=== PATIENT | female | born 1960 | race American Indian/Alaskan Native ===

== ENCOUNTER 2018-12-06 15:24 | Emergency (ER) | payer OTHER ==
[2018-12-06 15:38] VITALS: BP 137/81
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
[2018-12-06] MEDS ORDERED: HYDROcodone/ACETAMINOPHEN 5-325 MG TAB PO ONE (17:03)
[2018-12-06] MEDS ORDERED: IBUPROFEN 800 MG TAB PO ONE (17:03)
== END 2018-12-06 17:21 | disposition home or self-care (01) ==
LOC: ED 15:24
DX: M54.2 Cervicalgia (principal); M54.9 Dorsalgia, unspecified; I10 Essential (primary) hypertension; E11.9 Type 2 diabetes mellitus without complications
CPT/HCPCS: 72040

== ENCOUNTER 2019-02-26 05:25 | Emergency (ER) | payer SELFPAY ==
[2019-02-26] MEDS ORDERED: ONDANSETRON 4 MG ODT TAB PO PRN (07:09)
[2019-02-26] MEDS ORDERED: IBUPROFEN 600 MG TAB PO ONE (07:10)
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
[2019-02-26 10:08] LABS: Hematocrit 41.4 % (30.3-42.9); Hemoglobin 14.1 gm/dl (10.1-14.3); Mean Corpuscular HGB Conc 34 % (30-34); Mean Corpuscular Volume 86 fl (79-97); Platelet Count 273 K/mm3 (140-440); Red Blood Count 4.83 M/mm3 (3.65-5.03); Red Cell Distribution Width 13.5 % (13.2-15.2)
--- NOTE | 2019-02-26 10:55 | Cat Scan Report ---
CT cervical spine w con INDICATION: MAIN: posterior neck pain s/p TERA PAIN AND TINGLING DOWN LEFT ARM AND NECK. TECHNIQUE: All CT scans at this location are performed using the following dose modulation technique: Automated exposure control. COMPARISON: None available. FINDINGS: No acute fracture or subluxation is seen. ACDF at C3, C4, C5 has a satisfactory postoperative appeara nce. There is moderate to advanced discogenic degenerative change at C5-6 and C6-7. There is moderate osseous neural foraminal narrowing on the left at C4-5 and C5-6. There is no prevertebral soft tissue swelling. Lung apices are clear. Paraspinous musculature is unre markable. No soft tissue fluid collections are seen. IMPRESSION: 1. No acute abnormality. 2. Spondylitic changes with osseous neural foraminal narrowing on the left at C4-5 and C5-6. Signer Name: Pedro Pablo Baker MD Signed: 02/26/2019 10:51 AM Workstation Name: [id number]
[2019-02-26 11:27] LABS: Erythrocyte Sedimentation Rate 24 mm/Hr (0-20)
[2019-02-26 11:55] LABS: Total Cells Counted 100
[2019-02-26 11:56] LABS: Band Neutrophils # (Manual) 0.3 K/mm3; Basophils % (Manual) 0 % (0.0-1.8); RBC Morphology Normal
[2019-02-26 11:57] LABS: Platelet Estimate Consistent w Auto
[2019-02-26 12:12] VITALS: BP 141/74
== END 2019-02-26 12:12 | disposition home or self-care (01) ==
LOC: ED 05:25
DX: M54.2 Cervicalgia (principal); D72.828 Other elevated white blood cell count; I10 Essential (primary) hypertension; E11.9 Type 2 diabetes mellitus without complications; F17.200 Nicotine dependence, unspecified, uncomplicated; Z98.890 Other specified postprocedural states; Z79.899 Other long term (current) drug therapy; Z79.4 Long term (current) use of insulin
CPT/HCPCS: 36415; 72125; 72126; 85007; 85025; 85652

== ENCOUNTER 2020-05-15 05:58 | Emergency (ER) | payer OTHER ==
[2020-05-15] MEDS ORDERED: oxyCODONE /ACETAMINOPHEN 5-325MG TAB PO ONE (07:34)
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
--- NOTE | 2020-05-15 08:27 | Cat Scan Report ---
CLINICAL DATA: [See Reason for Exam] MAIN TECHNICAL DATA: CT imaging of the cervical spine was performed in the axial, sagittal, and coronal projections and alem ne algorithm in axial projection in the soft tissue algorithm. All CT scans at this location are performed using CT dose reduction for ALARA by means of automated e xposure control. C1-C2: The ring of C1 is normal. The odontoid is normal. There is no evidence of an offset. There is no evidence of a fracture. The spinal canal is well maintained. C2-C3: The spinal canal is well maintained. The neural foramina are normal. The vertebral bodies a re normal. The posterior elements are intact. There is no evidence of a fracture. C3-C4: . ACDF at C3- C4 satisfactory postoperative changes. C4-C5: ACDF C4-C5 has a satisfactory postoperative appearance. C5-C6: Interval surgical changes present C5-C6. C6-C7: Interval surgical changes present C6-C7 C7-T1: The spinal canal is well maintained. The neural foramina are normal. The vertebral bodies a re normal. The posterior elements are intact. There is no evidence of a fracture. IMPRESSION: Postoperative changes as noted If clinical symptoms persist recommend MR for further evaluation Signer Name: Andrade Rojas MD Signed: 05/15/2020 8:22 AM Workstation Name: [id number]
[2020-05-15 09:18] LABS: BUN/Creatinine Ratio 26; Blood Urea Nitrogen 21 mg/dL (7-17); Calcium 10.2 mg/dL (8.4-10.2); Hemolysis Index 25
[2020-05-15 09:19] LABS: Hematocrit 42.9 % (30.3-42.9); Hemoglobin 14.9 gm/dl (10.1-14.3); Mean Corpuscular HGB Conc 35 % (30-34); Mean Corpuscular Volume 86 fl (79-97); Platelet Count 192 K/mm3 (140-440); Red Blood Count 5.01 M/mm3 (3.65-5.03); Red Cell Distribution Width 14.1 % (13.2-15.2)
[2020-05-15 09:47] VITALS: BP 155/86
[2020-05-15 10:34] LABS: Total Cells Counted 100
[2020-05-15 10:35] LABS: Platelet Estimate Consistent w Auto; RBC Morphology Normal
== END 2020-05-15 09:47 | disposition home or self-care (01) ==
LOC: ED 05:58
DX: M54.2 Cervicalgia (principal); I10 Essential (primary) hypertension; E11.9 Type 2 diabetes mellitus without complications; F17.200 Nicotine dependence, unspecified, uncomplicated; Z98.890 Other specified postprocedural states; Z90.49 Acquired absence of other specified parts of digestive tract; Z79.899 Other long term (current) drug therapy; Z98.1 Arthrodesis status
CPT/HCPCS: 36415; 72125; 80048; 84443; 85007; 85025